=== PATIENT | female | born 1965 ===

== ENCOUNTER 2021-03-18 08:26 | Day surgery (SDC) | payer OTHER ==
[~2021-03-18] VITALS: Ht 165.1 cm; Wt 123.0 kg
[2021-03-18] MEDS ORDERED: URSO500T9 PO (09:13)
[2021-03-18] MEDS ORDERED: ASPI81TA45 PO (09:13)
[2021-03-18] MEDS ORDERED: GABA600T7 PO (09:13)
[2021-03-18] MEDS ORDERED: METO50TA4 PO (09:13)
[2021-03-18] MEDS ORDERED: LISI-170 PO (09:13)
[2021-03-18] MEDS ORDERED: ESTR0.6246 PO (09:13)
[2021-03-18] MEDS ORDERED: DULA0.75 INJ (09:13)
[2021-03-18] MEDS ORDERED: FURO20TA3 PO (09:13)
[2021-03-18] MEDS ORDERED: vitamin d PO (09:13)
[2021-03-18] MEDS ORDERED: SPIR25TA5 PO (09:13)
[2021-03-18] MEDS ORDERED: INSU500I INJ (09:13)
[2021-03-18] MEDS ORDERED: CHLORHEXIDINE 15 ML UDC ONE (09:18)
[2021-03-18] MEDS ORDERED: PLEASE ENTER HEIGHT AND WEIGHT MC SCH (09:30)
[2021-03-18] MEDS ORDERED: LACTATED RINGERS 1,000 ML IV SCH (09:30)
[2021-03-18] MEDS ORDERED: CHLORHEXIDINE 15 ML UDC PO ONE (09:30)
[2021-03-18 09:31] VITALS: BP 136/80
[2021-03-18 09:43] LABS: ALANINE AMINOTRANSFERASE 85 U/L (12-78); ALBUMIN 3.8 g/dL (3.4-5.0); ANION GAP 4 mmol/L (5-15); CALCIUM 9.3 mg/dL (8.5-10.1); CHLORIDE 106 mmol/L (98-107); CREATININE 0.86 mg/dL (0.55-1.02)
[2021-03-18 09:45] LABS: ALKALINE PHOSPHATASE 62 U/L (45-117); BILIRUBIN,TOTAL 0.6 mg/dL (0.2-1.0)
[2021-03-18] MEDS ORDERED: DIPHENHYDRAMINE 50 MG/ML, 1ML IVPush PRN (10:00)
[2021-03-18] MEDS ORDERED: ALBUTEROL/IPRATROPIUM 2.5MG/0.5MG, 3 ML NPPB PRN (10:00)
[2021-03-18] MEDS ORDERED: HALOPERIDOL 5 MG/ML IV PRN (10:00)
[2021-03-18] MEDS ORDERED: LABETALOL 5MG/ML, 20ML IV PRN (10:00)
[2021-03-18] MEDS ORDERED: LORazepam 2 MG/ML, 1ML IVPush PRN (10:00)
[2021-03-18] MEDS ORDERED: FENTANYL PF 100 MCG/2ML IV PRN (10:00)
[2021-03-18] MEDS ORDERED: EPHEDRINE 50 MG/ML, 1ML IM PRN (10:00)
[2021-03-18] MEDS ORDERED: MIDAZOLAM 1 MG/ML, 2ML IV PRN (10:00)
[2021-03-18] MEDS ORDERED: DIAZEPAM 5 MG/ML, 2ML IVPush PRN (10:00)
[2021-03-18] MEDS ORDERED: hydrALAzine 20 MG/ML, 1ML IV PRN (10:00)
[2021-03-18] MEDS ORDERED: METOPROLOL 1 MG/ML, 5ML IV PRN (10:00)
[2021-03-18] MEDS ORDERED: HYDROcodone/APAP 7.5-325MG/15ML UDC PO PRN (10:00)
[2021-03-18] MEDS ORDERED: ONDANSETRON 2MG/ML, 2ML IVPush PRN (10:00)
[2021-03-18] MEDS ORDERED: OXYcodone 5 MG/5 ML ORAL.SOL UDC PO PRN (10:00)
[2021-03-18] MEDS ORDERED: MEPERIDINE/PF 25MG/0.5ML IVPush PRN (10:00)
[2021-03-18] MEDS ORDERED: METOCLOPRAMIDE 5 MG/ML, 2ML IVPush PRN (10:00)
[2021-03-18] MEDS ORDERED: MIDAZOLAM 1 MG/ML, 2ML ONE (10:04)
[2021-03-18] MEDS ORDERED: PROPOFOL 10 MG/ML, 20ML ONE (10:04)
[2021-03-18] MEDS ORDERED: LIDOCAINE 2% 100MG/5ML SYRINGE ONE (10:04)
[2021-03-18] MEDS ORDERED: GLYCOPYRROLATE 0.2MG/1ML, 5ML ONE (10:35)
[2021-03-18] MEDS ORDERED: DEXAMETHASONE 4 MG/ML, 1ML ONE (10:35)
== END 2021-03-18 13:00 | disposition home or self-care (01) ==
LOC: OUT 08:26
PROVIDERS: ATTEND Internal Medicine Geriatric Medicine
DX: R93.5 Abnormal findings on diagnostic imaging of other abdominal regions, including retroperitoneum (principal); E11.9 Type 2 diabetes mellitus without complications; I10 Essential (primary) hypertension; M35.00 Sjogren syndrome, unspecified; E66.9 Obesity, unspecified; Z20.822 Contact with and (suspected) exposure to COVID-19; Z79.4 Long term (current) use of insulin; Z79.899 Other long term (current) drug therapy
CPT/HCPCS: 43259; 80053; 82962; 87635; J1100; J2250; J2704; J7120